=== PATIENT | female | born 2000 | race Caucasian/White ===

== ENCOUNTER 2025-07-10 17:42 | Emergency (ER) | payer MEDICAID ==
[~2025-07-10] VITALS: Ht 165.1 cm; Wt 54.4 kg
[2025-07-10 18:01] VITALS: BP 105/54; TEMP 98; O2SAT 98
[2025-07-10 18:38] LABS: APPEARANCE,URINE CLEAR (CLEAR); BLOOD, URINE Negative Ery/uL (NEGATIVE); LEUKOCYTE ESTERASE ,URINE Trace (NEGATIVE); NITRITE, URINE NEGATIVE (NEGATIVE); UGLUCOSE Negative (NEGATIVE)
[2025-07-10 18:42] LABS: ADD URINE CULTURE YES; SQUAMOUS EPITHELIAL CELL,UR Few /HPF (None Seen)
[2025-07-10] MEDS ORDERED: NITR100C PO (19:06)
[2025-07-10] MEDS ORDERED: MICO142C TP (19:06)
[2025-07-10] MEDS ORDERED: METR-147 PO (19:06)
[2025-07-13 05:08] LABS: CHLAMYDIA TRACHOMATIS NAA Negative (Negative); NEISSERIA GONORRHOEAE NAA Negative (Negative)
== END 2025-07-10 19:13 | disposition home or self-care (01) ==
LOC: ER 17:47
DX: N76.0 Acute vaginitis (principal); B96.89 Other specified bacterial agents as the cause of diseases classified elsewhere; B37.9 Candidiasis, unspecified; N39.0 Urinary tract infection, site not specified
CPT/HCPCS: 81001; 84703-TC; 87086-TC; 87491; 87591